=== PATIENT | male | born 1975 | race American Indian/Alaskan Native ===

== ENCOUNTER 2018-02-28 12:30 | Observation (INO) | payer BC ==
[2018-02-28 13:02] VITALS: BMI 39.1
--- NOTE | 2018-02-28 13:31 | C.PDOC ---
History Of Present Illness 42 years old male presents to ED for complaints of abdominal pain associated with cough, generalized weakness, and diarrhea. The patient reports that he is also having intermittent chest pain over the past 3 days. Denies fever, vomit ing, recent travel, back pain, rash, sore throat, ear pain, or Hx of asthma. Time Seen by Provider: 02/28/18 13:18 Chief Complaint (Nursing): Abdominal Pain History Per: Patient History/Exam Limitations: no limitations Onset/Duration Of Symptoms: Hrs Current Symptoms Are (Timing): Still Present Location Of Pain/Discomfort: Diffuse Radiation Of Pain To:: None Associated Symptoms: Diarrhea. denies: Fever, Chills Exacerbating Factors: None Alleviating Factors: None Last Bowel Movement: Today Recent travel outside of the [place]: No Past Medical History Reviewed: Historical Data, Nursing Documentation, Vital Signs Vital Signs: Last Vital Signs Temp 97.8 F 02/28/18 12:42 Pulse 93 H 02/28/18 12:42 Resp 18 02/28/18 12:42 BP 142/97 H 02/28/18 12:42 Pulse Ox 97 02/28/18 12:42 - Medical History PMH: HTN (takes no medication.) Surgical History: No Surg Hx Family History: States: No Known Family Hx - Social History Hx Alcohol Use: Yes Hx Substance Use: No - Immunization History Hx Tetanus Toxoid Vaccination: No Hx Influenza Vaccination: No Hx Pneumococcal Vaccination: No Review Of Systems Constitutional: Positive for: Weakness. Negative for: Fever, Chills Respiratory: Positive for: Cough Gastrointestinal: Positive for: Abdominal Pain, Diarrhea. Negative for: Nausea, Vomiting Skin: Negative for: Rash Neurological: Negative for: Weakness, Numbness Physical Exam - Physical Exam Appears: Non-toxic, No Acute Distress Skin: Normal Color, Warm, Dry, No Rash Head: Atraumatic, Normacephalic Eye(s): bilateral: Normal Inspection, PERRL, EOMI Nose: Normal Oral Mucosa: Moist Neck: Normal ROM, Supple Chest: Symmetrical, No Tenderness Cardiovascular: Rhythm Regular, No Friction Rub, No Murmur Respiratory: Normal Breath Sounds, No Rales, No Rhonchi, No Wheezing Gastrointestinal/Abdominal: Bowel Sounds, Soft, No Tenderness Back: Normal Inspection, No CVA Tenderness Extremity: Normal ROM, No Tenderness, No Swelling Extremity: Bilateral: Atraumatic, Normal Color And Temperature, Normal ROM Neurological/Psych: Oriented x3, Normal Speech, Normal Motor Gait: Steady ED Course And Treatment - Laboratory Results Result Diagrams: 02/28/18 13:55 02/28/18 13:55 O2 Sat by Pulse Oximetry: 97 (RA) Pulse Ox Interpretation: Normal - Other Rad CXR X-Ray: Viewed By Me, Read By Radiologist Interpretation: HISTORY: abd pain. COMPARISON: No prior. TECHNIQUE: Chest, one view. FINDINGS: Examination limited by habitus. LUNGS: No focal consolidation. Please note that chest x-ray has limited sensitivity for the detection of pulmonary masses. PLEURA: No significant pleural effusion identified. No definite pneumothorax . CARDIOVASCULAR: Top normal cardiac size. Prominent mediastinum may be related to ectatic aorta. No significant atherosclerotic calcification present. OSSEOUS STRUCTURES: No acute osseous abnormality identified. VISUALIZED UPPER ABDOMEN: Unremarkable. OTHER FINDINGS: None. IMPRESSION: Prominent mediastinum may be related to ectatic aorta. Alternatives including adenopathy are not excluded. Correlate clinically. No focal consolidation. Medical Decision Making Medical Decision Making: Plan: * IV Fluids * Toradol * Zofran * Blood work * CXR * EKG * Urinalysis EKG: * Normal sinus rhythm at 73 bpm * T-Wave abnormality V1, V2, V3 * Inverted T wave V5 and V6. * No old EKG for comparison The case was discussed with Dr. Gustavo Petty (hospitalist) who agrees to admit the patient under Dr. Douglass's service. The CT Angio shows some infiltrates on the right side. Blood cultures and Zithromax and Rocephin IV ordered. Influenza was negative. Disposition - Disposition Disposition: HOSPITALIZED Disposition Time: 17:30 Condition: STABLE - Clinical Impression Clinical Impression: Chest pain, Abnormal ECG, Viral syndrome - PA / CHRI[employer]IAN SCI[employer]ER / Resident Statement MD/DO has reviewed & agrees with the documentation as recorded. - Scribe Statement The provider has reviewed the documentation as recorded by the Netta Carroll All medical record entries made by the Ronnieibroger were at my direction and personally dictated by me. I have reviewed the chart and agree that the record accurately reflects my personal performance of the history, physical exam, medical decision making, and the department course for this patient. I have also personally directed, reviewed, and agree with the discharge instructions and disposition.
[2018-02-28] MEDS ORDERED: Sodium Chloride 0.9% 1,000 ML IV ONE (13:40)
[2018-02-28] MEDS ORDERED: Sodium Chloride 0.9% 1,000 ML ONE (13:56)
[2018-02-28 14:05] LABS: BASO % 0.9 % (0.0-2.0); EOS % 0.1 % (0.0-4.0); LYMPH # 1.6 K/uL (1.0-4.3); LYMPH % 35.2 % (20.0-40.0); MEAN CELL VOLUME 93.5 fL (80.0-94.0); MEAN CORPUSCULAR HEMOGLOBIN 31.3 pg (27.0-31.0); MEAN CORPUSCULAR HGB CONC 33.4 g/dL (33.0-37.0); MEAN PLATELET VOLUME 9.8 fL (7.2-11.7); MONO # 0.7 K/uL (0.0-0.8); MONO % 14.3 % (0.0-10.0); NEUT # 2.3 K/uL (1.8-7.0); NEUT % 49.5 % (50.0-75.0); NRBC % 0.2 % (0.0-2.0); RBC 4.79 Mil/uL (4.40-5.90); RED CELL DISTRIBUTION WIDTH 14.3 % (11.5-14.5); WHITE BLOOD COUNT 4.6 K/uL (4.8-10.8)
[2018-02-28 14:09] LABS: SQUAMOUS EPITHIAL < 1 /hpf (0-5); URINE BACTERIA RARE (<OCC); URINE BILIRUBIN NEGATIVE (NEGATIVE); URINE BLOOD NEGATIVE (NEGATIVE); URINE CLARITY Hazy (Clear); URINE COLOR Amber (YELLOW); URINE GLUCOSE (UA) NORMAL (Normal); URINE LEUKOCYTE ESTERASE NEG Leu/uL (Negative); URINE PROTEIN 3+ mg/dL (NEGATIVE); URINE UROBILINOGEN NORMAL mg/dL (0.2-1.0)
[2018-02-28 14:20] LABS: BLOOD UREA NITROGEN 16 mg/dL (9-20); GFR NON-AFRICAN AMERICAN > 60
[2018-02-28 14:21] LABS: ALB/GLOB RATIO 1.3 (1.0-2.1); ALBUMIN 4.6 g/dL (3.5-5.0); ALT/SGPT 39 U/L (21-72); AST/SGOT 46 U/L (17-59); LIPASE 124 U/L (23-300)
--- NOTE | 2018-02-28 14:21 | RAD ---
HISTORY: abd pain COMPARISON: No prior. TECHNIQUE: Chest, one view. FINDINGS: Examination limited by habitus. LUNGS: No focal consolidation. Please note that chest x-ray has limited sensitivity for the detection of pulmonary masses. PLEURA: No significant pleural effusion identified. No definite pneumothorax . CARDIOVASCULAR: Top normal cardiac size. Prominent mediastinum may be related to ectatic aorta. No significant atherosclerotic calcification present. OSSEOUS STRUCTURES: No acute osseous abnormality identified. VISUALIZED UPPER ABDOMEN: Unremarkable. OTHER FINDINGS: None. IMPRESSION: Prominent mediastinum may be related to ectatic aorta. Alternatives including adenopathy are not excluded. Correlate clinically. No focal consolidation.
[2018-02-28] MEDS ORDERED: Iodixanol 320 MG/ML 100 ML BOTTLE IV ONE (17:23)
--- NOTE | 2018-02-28 18:08 | CT ---
Date of service: 02/28/2018 PROCEDURE: CT Chest with contrast HISTORY: chest pain, widened mediastinum COMPARISON: None available. TECHNIQUE: Contiguous axial images were obtained through the chest with intravenous contrast enhancement. Sagittal and coronal reconstructions were performed. IV contrast: 100 cc Omnipaque 300 Radiation dose: Total exam DLP = 668.27 mGy-cm. This CT exam was performed using one or more of the following dose reduction techniques: Automated exposure control, adjustment of the mA and/or kV according to patient size, and/or use of iterative reconstruction technique. FINDINGS: LUNGS: Faint infiltrate/atelectasis right lower lobe additional infiltrate posterior segment right upper lobe. MEDIASTINUM: Top-normal ascending aorta measures 3.9 cm. Otherwise, no aneurysm or dissection. Normal size heart. Left ventricular wall hypertrophy. Etiology unknown. Main pulmonary artery unremarkable. No vascular congestion. No lymphadenopathy. No aortic atherosclerotic calcification or mural plaque present. PLEURA: No pleural fluid. No pneumothorax. BONES: No fracture. No destructive lesion. UPPER ABDOMEN: Grossly unremarkable. OTHER FINDINGS: None. IMPRESSION: 1. Left ventricular hypertrophy, mildly aneurysmal ascending aorta. Cardiac echo may further resolved these findings 2. Subsegmental infiltrates right upper lobe, right lower lobe. Findings are best seen on sagittal images series 602/82.
[2018-02-28] MEDS ORDERED: cefTRIAXone IV 1 gm in Dextros 50 ML IV ONE ×2 (18:40→19:30)
[2018-02-28] MEDS ORDERED: Azithromycin 500mg/250ML NS 500 MG/250 ML BAG IV ONE ×2 (18:45→20:00)
--- NOTE | 2018-02-28 20:16 | CP.PCM.HP ---
<Nelson Raymundo - Last Filed: 03/01/18 06:54> History of Present Illness - History of Present Illness History of Present Illness: CC "chest pain, cough" HPI: Patient is a 42 year old male with history of hypertension who presents with right sided chest pain and dry cough. He states he has been feeling sick for for 5 days, initially experiencing abdominal pain with decreased appetite, and 1 episode of watery stool yesterday. He states that he experienced episode of watery stool after he took 2 tablets of Pepto bismol. He states he has had an intermittent dry cough for the past 5 days as well. He states he came in to seek medical attention today because he experienced sudden onset of right sided chest pain described as discomfort today, which resolved after he rubbed the area. He denies improvement in pain with deep breath, position. He admits to feeling warm at home, but denies chills. Denies nausea, vomiting. He denies headache, dizziness, shortness of breath, palpitations, back pain, urinary frequency or pain or urgency, swelling in legs or leg pain. He denies recent travel or sick contacts. PMH: Hypertension PSH: boil removal Family hx: mother has unspecificed heart issues Social hx: Currently works in construction. Stopped smoking 20 years ago, denies alcohol or drug use. Home meds: none Allergies: Lisinipril - lips swell up. Present on Admission - Present on Admission Any Indicators Present on Admission: No Review of Systems - Constitutional Constitutional: Fever. absent: Chills, Weight Gain, Weight Loss - EENT Eyes: absent: Change in Vision, Spots in Vision Ears: absent: Ear Discharge, Dizziness Nose/Mouth/Throat: absent: Nasal Congestion, Sore Throat - Cardiovascular Cardiovascular: Chest Pain. absent: Dyspnea, Palpitations, Syncope - Respiratory Respiratory: Cough, Dyspnea - Gastrointestinal Gastrointestinal: Abdominal Pain. absent: Nausea, Vomiting - Genitourinary Genitourinary: absent: Change in Urinary Stream, Difficulty Urinating - Musculoskeletal Musculoskeletal: absent: Back Pain, Stiffness - Neurological Neurological: absent: Confusion, Dizziness, Loss of Vision - Psychiatric Psychiatric: absent: Anxiety, Depression Past Patient History - Past Social History Smoking Status: Heavy Smoker > 10 Cigarettes Daily - CARDIAC Hx Hypertension: Yes (takes no medication.) - PSYCHIATRIC Hx Substance Use: No - SURGICAL HISTORY Hx Surgeries: No - ANESTHESIA Hx Anesthesia: No Meds Allergies/Adverse Reactions: Allergies Allergy/AdvReac Type Severity Reaction Status Date / Time lisinopril AdvReac SWELLING Verified 02/28/18 12:41 Physical Exam - Constitutional Appears: Well, Non-toxic, No Acute Distress - Head Exam Head Exam: ATRAUMATIC, NORMOCEPHALIC - Eye Exam Eye Exam: EOMI, PERRL. absent: Conjunctival injection, Periorbital swelling - ENT Exam ENT Exam: Mucous Membranes Moist, Normal Oropharynx - Neck Exam Neck exam: Positive for: Full Rom. Negative for: Lymphadenopathy, Tenderness, Thyromegaly - Respiratory Exam Respiratory Exam: Clear to Auscultation Bilateral. absent: Accessory Muscle Use Additional comments: Slight Tachypnea at rest Intermittent dry cough - Cardiovascular Exam Cardiovascular Exam: REGULAR RHYTHM, +S1, +S2. absent: Gallop, Rubs, Systolic Murmur - GI/Abdominal Exam GI & Abdominal Exam: Normal Bowel Sounds, Soft. absent: Distended, Firm, Guarding, Hernia, Rigid, Tenderness - Rectal Exam Rectal Exam: Deferred - Extremities Exam Extremities exam: Positive for: normal capillary refill, pedal pulses present. Negative for: calf tenderness, pedal edema - Back Exam Back exam: absent: CVA tenderness (L), CVA tenderness (R) - Neurological Exam Neurological exam: Alert, CN II-XII Intact, Oriented x3 - Psychiatric Exam Psychiatric exam: Normal Affect, Normal Mood - Skin Skin Exam: Dry, Intact, Warm Results - Vital Signs Recent Vital Signs: Last Vital Signs Temp 99.4 F 02/28/18 15:56 Pulse 91 H 02/28/18 18:34 Resp 13 02/28/18 18:34 BP 151/87 H 02/28/18 18:34 Pulse Ox 97 02/28/18 18:59 - Labs Result Diagrams: 03/01/18 04:01 02/28/18 13:55 Labs: Laboratory Results - last 24 hr 02/28/18 02/28/18 02/28/18 13:55 13:55 13:55 WBC 4.6 L RBC 4.79 Hgb 15.0 Hct 44.8 MCV 93.5 MCH 31.3 H MCHC 33.4 RDW 14.3 Plt Count 190 MPV 9.8 Neut % (Auto) 49.5 L Lymph % (Auto) 35.2 Ness % (Auto) 14.3 H Eos % (Auto) 0.1 Baso % (Auto) 0.9 Neut # (Auto) 2.3 Lymph # (Auto) 1.6 Ness # (Auto) 0.7 Eos # (Auto) 0.0 Baso # (Auto) 0.0 Sodium 136 Potassium 3.5 L Chloride 98 Carbon Dioxide 28 Anion Gap 14 BUN 16 Creatinine 1.0 Est GFR ( Amer) > 60 Est GFR (Non-Af Amer) > 60 Random Glucose 100 Calcium 9.0 Total Bilirubin 0.6 AST 46 ALT 39 Alkaline Phosphatase 78 Troponin I 0.0450 Total Protein 8.2 Albumin 4.6 Globulin 3.6 Albumin/Globulin Ratio 1.3 Lipase 124 Urine Color Danielle Urine Clarity Hazy Urine pH 5.0 Ur Specific Tenino 1.034 H Urine Protein 3+ H Urine Glucose (UA) Normal Urine Ketones Negative Urine Blood Negative Urine Nitrate Negative Urine Bilirubin Negative Urine Urobilinogen Normal Ur Leukocyte Esterase Neg Urine WBC (Auto) 2 Urine RBC (Auto) 2 Ur Squamous Epith Cells < 1 Urine Bacteria Rare Influenza Typ A,B (EIA) 02/28/18 17:17 WBC RBC Hgb Hct MCV MCH MCHC RDW Plt Count MPV Neut % (Auto) Lymph % (Auto) Ness % (Auto) Eos % (Auto) Baso % (Auto) Neut # (Auto) Lymph # (Auto) Ness # (Auto) Eos # (Auto) Baso # (Auto) Sodium Potassium Chloride Carbon Dioxide Anion Gap BUN Creatinine Est GFR ( Amer) Est GFR (Non-Af Amer) Random Glucose Calcium Total Bilirubin AST ALT Alkaline Phosphatase Troponin I Total Protein Albumin Globulin Albumin/Globulin Ratio Lipase Urine Color Urine Clarity Urine pH Ur Specific Tenino Urine Protein Urine Glucose (UA) Urine Ketones Urine Blood Urine Nitrate Urine Bilirubin Urine Urobilinogen Ur Leukocyte Esterase Urine WBC (Auto) Urine RBC (Auto) Ur Squamous Epith Cells Urine Bacteria Influenza Typ A,B (EIA) Negative for flu a/b Assessment & Plan - Assessment and Plan (Free Text) Assessment: 42 year old male with history of hypertension who presents for right sided chest pain and dry cough. Plan: Cough, likely secondary to pneumonia Febrile 100.8 White count 4.6 CXR: prominent mediastinum may be related to ectatic aorta. Alternatives including adenopathy are not excluded. Correlate clinically CT angio: LVH, Mildly aneurysmal ascending aorta. Cardio echo may further resolve these findings. Subsegmental infiltrates RUL and RLL. In ED, patient received Rocephin 1g IV, Azithromycin 500mg IV. Rocephin 1g BID Doxycycline 100mg BID Tylenol 650mg Q6 PRN f/u blood cultures f/u legionella, mycoplasma, strep Chest pain, r/o ACS EKG SR 72 LVH CXR: prominent mediastinum may be related to ectatic aorta. Alternatives i ncluding adenopathy are not excluded. Correlate clinically CT angio: LVH, Mildly aneurysmal ascending aorta. Cardio echo may further resolve these findings. Subsegmental infiltrates RUL and RLL. Trops f/u EKG f/u f/u ECHO ASA 81mg PO Crestor 10mg PO HS Elevated Blood pressure Reeval in AM Not taking medications at home PPX Heparin 5000 units SC Q12, SCDs Protonix 40mg IV daily Heart healthy diet Case discussed with Dr. Evonne Raymundo, PGY1 <Albert Douglass P - Last Filed: 03/01/18 08:18> Results - Vital Signs Recent Vital Signs: Last Vital Signs Temp 99.3 F 03/01/18 04:15 Pulse 68 03/01/18 04:15 Resp 20 03/01/18 04:15 BP 140/92 H 03/01/18 04:15 Pulse Ox 96 03/01/18 04:15 - Labs Result Diagrams: 03/01/18 04:01 03/01/18 04:01 Labs: Laboratory Results - last 24 hr 02/28/18 02/28/18 02/28/18 13:55 13:55 13:55 WBC 4.6 L RBC 4.79 Hgb 15.0 Hct 44.8 MCV 93.5 MCH 31.3 H MCHC 33.4 RDW 14.3 Plt Count 190 MPV 9.8 Neut % (Auto) 49.5 L Lymph % (Auto) 35.2 Ness % (Auto) 14.3 H Eos % (Auto) 0.1 Baso % (Auto) 0.9 Neut # (Auto) 2.3 Lymph # (Auto) 1.6 Ness # (Auto) 0.7 Eos # (Auto) 0.0 Baso # (Auto) 0.0 Sodium 136 Potassium 3.5 L Chloride 98 Carbon Dioxide 28 Anion Gap 14 BUN 16 Creatinine 1.0 Est GFR ( Amer) > 60 Est GFR (Non-Af Amer) > 60 POC Glucose (mg/dL) Random Glucose 100 Calcium 9.0 Phosphorus Magnesium Total Bilirubin 0.6 AST 46 ALT 39 Alkaline Phosphatase 78 Troponin I 0.0450 Total Protein 8.2 Albumin 4.6 Globulin 3.6 Albumin/Globulin Ratio 1.3 Lipase 124 Urine Color Danielle Urine Clarity Hazy Urine pH 5.0 Ur Specific Tenino 1.034 H Urine Protein 3+ H Urine Glucose (UA) Normal Urine Ketones Negative Urine Blood Negative Urine Nitrate Negative Urine Bilirubin Negative Urine Urobilinogen Normal Ur Leukocyte Esterase Neg Urine WBC (Auto) 2 Urine RBC (Auto) 2 Ur Squamous Epith Cells < 1 Urine Bacteria Rare Influenza Typ A,B (EIA) 02/28/18 02/28/18 03/01/18 17:17 20:51 04:01 WBC 2.9 L RBC 4.17 L Hgb 13.2 Hct 38.6 MCV 92.5 MCH 31.6 H MCHC 34.1 RDW 14.3 Plt Count 163 MPV 8.9 Neut % (Auto) 35.1 L Lymph % (Auto) 47.8 H Ness % (Auto) 15.7 H Eos % (Auto) 0.6 Baso % (Auto) 0.8 Neut # (Auto) 1.0 L Lymph # (Auto) 1.4 Ness # (Auto) 0.5 Eos # (Auto) 0.0 Baso # (Auto) 0.0 Sodium Potassium Chloride Carbon Dioxide Anion Gap BUN Creatinine Est GFR ( Amer) Est GFR (Non-Af Amer) POC Glucose (mg/dL) 134 H Random Glucose Calcium Phosphorus Magnesium Total Bilirubin AST ALT Alkaline Phosphatase Troponin I Total Protein Albumin Globulin Albumin/Globulin Ratio Lipase Urine Color Urine Clarity Urine pH Ur Specific Tenino Urine Protein Urine Glucose (UA) Urine Ketones Urine Blood Urine Nitrate Urine Bilirubin Urine Urobilinogen Ur Leukocyte Esterase Urine WBC (Auto) Urine RBC (Auto) Ur Squamous Epith Cells Urine Bacteria Influenza Typ A,B (EIA) Negative for flu a/b 03/01/18 03/01/18 04:01 06:18 WBC RBC Hgb Hct MCV MCH MCHC RDW Plt Count MPV Neut % (Auto) Lymph % (Auto) Ness % (Auto) Eos % (Auto) Baso % (Auto) Neut # (Auto) Lymph # (Auto) Ness # (Auto) Eos # (Auto) Baso # (Auto) Sodium 137 Potassium 3.7 Chloride 105 Carbon Dioxide 25 Anion Gap 11 BUN 14 Creatinine 0.8 Est GFR ( Amer) > 60 Est GFR (Non-Af Amer) > 60 POC Glucose (mg/dL) 101 Random Glucose 104 Calcium 8.2 L Phosphorus 3.4 Magnesium 1.8 Total Bilirubin 0.5 AST 51 ALT 46 Alkaline Phosphatase 69 Troponin I 0.0320 Total Protein 6.8 Albumin 3.7 Globulin 3.1 Albumin/Globulin Ratio 1.2 Lipase Urine Color Urine Clarity Urine pH Ur Specific Tenino Urine Protein Urine Glucose (UA) Urine Ketones Urine Blood Urine Nitrate Urine Bilirubin Urine Urobilinogen Ur Leukocyte Esterase Urine WBC (Auto) Urine RBC (Auto) Ur Squamous Epith Cells Urine Bacteria Influenza Typ A,B (EIA) Attending/Attestation - Attestation I have personally seen and examined this patient.: Yes I have fully participated in the care of the patient.: Yes I have reviewed all pertinent clinical information: Yes Notes (Text): 03/01/18 08:16 CP, cough, temp+ CTA showing multilobar small patchy pna Abnorma EKG HTN on initial assessment Protienuria Plan Rocephin, doxycycline Echo GI/DVT prophylaxis Repeat UA Monitor BP See orders for detail.
[2018-02-28 20:37] VITALS: RESP 20
[2018-02-28] MEDS ORDERED: Pneumococcal 23-Valent Vaccine IM ONE (20:43)
[2018-03-01 04:05] LABS: BASO % 0.8 % (0.0-2.0); EOS % 0.6 % (0.0-4.0); HEMOGLOBIN 13.2 g/dL (12.0-18.0); LYMPH # 1.4 K/uL (1.0-4.3); LYMPH % 47.8 % (20.0-40.0); MEAN CELL VOLUME 92.5 fL (80.0-94.0); MEAN CORPUSCULAR HEMOGLOBIN 31.6 pg (27.0-31.0); MEAN CORPUSCULAR HGB CONC 34.1 g/dL (33.0-37.0); MEAN PLATELET VOLUME 8.9 fL (7.2-11.7); MONO # 0.5 K/uL (0.0-0.8); MONO % 15.7 % (0.0-10.0); NEUT % 35.1 % (50.0-75.0); NRBC % 0.1 % (0.0-2.0); RBC 4.17 Mil/uL (4.40-5.90); RED CELL DISTRIBUTION WIDTH 14.3 % (11.5-14.5); WHITE BLOOD COUNT 2.9 K/uL (4.8-10.8)
[2018-03-01 06:04] LABS: ALB/GLOB RATIO 1.2 (1.0-2.1); ALBUMIN 3.7 g/dL (3.5-5.0); ALT/SGPT 46 U/L (21-72); AST/SGOT 51 U/L (17-59); BLOOD UREA NITROGEN 14 mg/dL (9-20); CALCIUM 8.2 mg/dl (8.6-10.4); GFR NON-AFRICAN AMERICAN > 60
[2018-03-01 08:38] VITALS: BP 122/77; TEMP 98.8; O2SAT 99
--- NOTE | 2018-03-01 14:39 | CP.PCM.DIS ---
<LoriYu June - Last Filed: 03/01/18 15:25> Provider - Provider Date of Admission: 02/28/18 17:55 Attending physician: Albert Douglass MD Time Spent in preparation of Discharge (in minutes): 45 Diagnosis - Discharge Diagnosis (1) Chest pain Status: Acute (2) PNA (pneumonia) Status: Acute Hospital Course - Lab Results Lab Results: Most Recent Lab Values WBC 2.9 K/uL (4.8-10.8) L 03/01/18 04:01 RBC 4.17 Mil/uL (4.40-5.90) L 03/01/18 04:01 Hgb 13.2 g/dL (12.0-18.0) 03/01/18 04:01 Hct 38.6 % (35.0-51.0) 03/01/18 04:01 MCV 92.5 fL (80.0-94.0) 03/01/18 04:01 MCH 31.6 pg (27.0-31.0) H 03/01/18 04:01 MCHC 34.1 g/dL (33.0-37.0) 03/01/18 04:01 RDW 14.3 % (11.5-14.5) 03/01/18 04:01 Plt Count 163 K/uL (130-400) 03/01/18 04:01 MPV 8.9 fL (7.2-11.7) 03/01/18 04:01 Neut % (Auto) 35.1 % (50.0-75.0) L 03/01/18 04:01 Lymph % (Auto) 47.8 % (20.0-40.0) H 03/01/18 04:01 Deuel % (Auto) 15.7 % (0.0-10.0) H 03/01/18 04:01 Eos % (Auto) 0.6 % (0.0-4.0) 03/01/18 04:01 Baso % (Auto) 0.8 % (0.0-2.0) 03/01/18 04:01 Neut # (Auto) 1.0 K/uL (1.8-7.0) L 03/01/18 04:01 Lymph # (Auto) 1.4 K/uL (1.0-4.3) 03/01/18 04:01 Deuel # (Auto) 0.5 K/uL (0.0-0.8) 03/01/18 04:01 Eos # (Auto) 0.0 K/uL (0.0-0.7) 03/01/18 04:01 Baso # (Auto) 0.0 K/uL (0.0-0.2) 03/01/18 04:01 Sodium 137 mmol/L (132-148) 03/01/18 04:01 Potassium 3.7 mmol/L (3.6-5.2) 03/01/18 04:01 Chloride 105 mmol/L (98-107) 03/01/18 04:01 Carbon Dioxide 25 mmol/L (22-30) 03/01/18 04:01 Anion Gap 11 (10-20) 03/01/18 04:01 BUN 14 mg/dL (9-20) 03/01/18 04:01 Creatinine 0.8 mg/dL (0.8-1.5) 03/01/18 04:01 Est GFR ( Amer) > 60 03/01/18 04:01 Est GFR (Non-Af Amer) > 60 03/01/18 04:01 POC Glucose (mg/dL) 101 mg/dL (65-110) 03/01/18 06:18 Random Glucose 104 mg/dL (75-110) 03/01/18 04:01 Calcium 8.2 mg/dl (8.6-10.4) L 03/01/18 04:01 Phosphorus 3.4 mg/dL (2.5-4.5) 03/01/18 04:01 Magnesium 1.8 mg/dL (1.6-2.3) 03/01/18 04:01 Total Bilirubin 0.5 mg/dL (0.2-1.3) 03/01/18 04:01 AST 51 U/L (17-59) 03/01/18 04:01 ALT 46 U/L (21-72) 03/01/18 04:01 Alkaline Phosphatase 69 U/L (38-126) 03/01/18 04:01 Troponin I 0.0250 ng/mL (0.00-0.120) 03/01/18 11:26 Total Protein 6.8 g/dL (6.3-8.3) 03/01/18 04:01 Albumin 3.7 g/dL (3.5-5.0) 03/01/18 04:01 Globulin 3.1 gm/dL (2.2-3.9) 03/01/18 04:01 Albumin/Globulin Ratio 1.2 (1.0-2.1) 03/01/18 04:01 Lipase 124 U/L (23-300) 02/28/18 13:55 Urine Color Danielle (YELLOW) 02/28/18 13:55 Urine Clarity Hazy (Clear) 02/28/18 13:55 Urine pH 5.0 (5.0-8.0) 02/28/18 13:55 Ur Specific [place] 1.034 (1.003-1.030) H 02/28/18 13:55 Urine Protein 3+ mg/dL (NEGATIVE) H 02/28/18 13:55 Urine Glucose (UA) Normal mg/dL (Normal) 02/28/18 13:55 Urine Ketones Negative mg/dL (NEGATIVE) 02/28/18 13:55 Urine Blood Negative (NEGATIVE) 02/28/18 13:55 Urine Nitrate Negative (NEGATIVE) 02/28/18 13:55 Urine Bilirubin Negative (NEGATIVE) 02/28/18 13:55 Urine Urobilinogen Normal mg/dL (0.2-1.0) 02/28/18 13:55 Ur Leukocyte Esterase Neg Bebeto/uL (Negative) 02/28/18 13:55 Urine WBC (Auto) 2 /hpf (0-5) 02/28/18 13:55 Urine RBC (Auto) 2 /hpf (0-3) 02/28/18 13:55 Ur Squamous Epith Cells < 1 /hpf (0-5) 02/28/18 13:55 Urine Bacteria Rare (<OCC) 02/28/18 13:55 Influenza Typ A,B (EIA) Negative for flu a/b (NEGATIVE) 02/28/18 17:17 - Hospital Course Hospital Course: Patient is a 42 year old male with history of hypertension who presents with right sided chest pain and dry cough. He states he has been feeling sick for for 5 days, initially experiencing abdominal pain with decreased appetite, and 1 episode of watery stool yesterday. He states that he experienced episode of watery stool after he took 2 tablets of Pepto bismol. He states he has had an intermittent dry cough for the past 5 days as well. He states he came in to seek medical attention today because he experienced sudden onset of right sided chest pain described as discomfort today, which resolved after he rubbed the area. He denies improvement in pain with deep breath, position. He admits to feeling warm at home, but denies chills. Denies nausea, vomiting. He denies headache, dizziness, shortness of breath, palpitations, back pain, urinary frequency or pain or urgency, swelling in legs or leg pain. He denies recent travel or sick contacts. CXR showed no focal cosolidation, but a prominent mediastinum. Chest CTA showed LV hypertrophy, mildly ascending aorta aneurysm at 3.9cm, and subsegmental infiltrates RUL, RLL. ECHO showed the aortic root at 3.4cm, LVEF 37%. The patient has clinically improved and is breathing easily without chest pain. Serial ROMIs and EKGs were negative x3. Primary Diagnosis: Chest Pain r/o ACS, Pneumonia Patient is clear for discharge per Dr. Ruiz. He is to take the antibiotic as instructed every day: Avelox (moxifloxicin) 400mg po daily. Take one tab by mouth once a day for 8 days You are also being started on two medications for your heart. It will be very important for you to follow up with your doctor to continue these medications: Lopressor 12.5mg po daily. Take one tab by mouth once a day Simvastatin 10mg po HS. Take one tab by mouth at bedtime You decided against being started on an ACEi/ARB due to your Lisinopril allergy. Patient is to follow up with PMD within one week for follow up. If patient cannot establish care, he is welcome to [facility]. If symptoms should return or worsen (fever, cough, shortness of breath) please return to the ED. Please take it easy for the next few days while your body recovers. You can return to work next week. This was discussed with the patient who understood and agrees. This is a summary of the hospital course. Please refer to the EMR for more detail. - Date & Time of H&P Date of H&P: 03/01/18 Time of H&P: 14:15 Discharge Exam - Head Exam Head Exam: ATRAUMATIC, NORMOCEPHALIC - Eye Exam Eye Exam: EOMI, Normal appearance, PERRL - ENT Exam ENT Exam: Mucous Membranes Moist Additional comments: Nasal Congestion - Respiratory Exam Respiratory Exam: Wheezes, NORMAL BREATHING PATTERN. absent: Rales, Rhonchi Additional comments: R expiratory wheezes - Cardiovascular Exam Cardiovascular Exam: REGULAR RHYTHM, +S1, +S2 - GI/Abdominal Exam GI & Abdominal Exam: Normal Bowel Sounds, Soft. absent: Distended, Firm, Guarding, Tenderness - Extremities Exam Extremities exam: normal capillary refill, pedal pulses present - Back Exam Back exam: absent: CVA tenderness (L), CVA tenderness (R) - Neurological Exam Neurological exam: Alert, CN II-XII Intact, Normal Gait, Oriented x3, Reflexes Normal - Psychiatric Exam Psychiatric exam: Normal Affect, Normal Mood - Skin Skin Exam: Normal Color, Warm Additional comments: sweaty Discharge Plan - Discharge Medications Prescriptions: RX: Metoprolol Tartrate [Lopressor] 12.5 mg PO DAILY #30 tab Moxifloxacin [Avelox] 400 mg PO DAILY #8 tab RX: Simvastatin 5 mg PO DAILY #30 tablet - Follow Up Plan Condition: STABLE Disposition: HOME/ ROUTINE Instructions: Heart Healthy Diet, Chest Pain, Moxifloxacin (Systemic), Pneumonia, Adult (DC), Low Salt Diet, Metoprolol, Simvastatin Additional Instructions: Activity as tolerated, continue all meds as instructed. Patient is clear for discharge per Dr. Ruiz. He is to take the antibiotic as instructed every day: Avelox (moxifloxicin) 400mg po daily. Take one tab by mouth once a day for 8 days You are also being started on two medications for your heart. It will be very important for you to follow up with your doctor to continue these medications: Lopressor 12.5mg po daily. Take one tab by mouth once a day Simvastatin 10mg po HS. Take one tab by mouth at bedtime Patient is to follow up with PMD within one week for follow up. If patient cannot establish care, he is welcome to [facility]. If symptoms should return or worsen (fever, cough, shortness of breath) please return to the ED. Please take it easy for the next few days while your body recovers. You can return to work next week. This was discussed with the patient who understood and agrees. Referrals: Clinic,Med Surg [Non-Staff] - [facility] [Outside] Clinical Quality Measures - CQM - Heart Failure Ejection Fraction: Less Than 40 % CARLOS Inhibitor Prescribed: No Contraindication/Reason for not providing: Patient refused Beta-Louis Prescribed: Metoprolol Succinate Angiotensin II Receptor Louis Prescribed: No Contraindication/Reason for not providing: patient refused AnticoagulationTherapy for Atrial Fibrillation/Atrialflutter: No Contraindication/Reason for not providing: no AFib/Aflutter Aldosterone Antagonist Prescribed: No Contraindication/Reason for not providing: not indicated Hydralazine Nitrate Prescribed: No Contraindication/Reason for not providing: not indicated Implantable Cardioverter Defibrillator Therapy: No Contraindication/Reason for not providing: medical management optimization trial Cardiac Resynchronization Therapy Prescribed: No Contraindication/Reason for not providing: not indicated <Acosta Ruiz - Last Filed: 03/02/18 07:06> Provider - Provider Date of Admission: 02/28/18 17:55 Attending physician: Albert Douglass MD Hospital Course - Lab Results Lab Results: Micro Results 02/28/18 19:30 Blood Blood Culture - Preliminary NO GROWTH AFTER 24 HOURS 02/28/18 19:00 Blood Blood Culture - Preliminary NO GROWTH AFTER 24 HOURS Most Recent Lab Values WBC 2.9 K/uL (4.8-10.8) L 03/01/18 04:01 RBC 4.17 Mil/uL (4.40-5.90) L 03/01/18 04:01 Hgb 13.2 g/dL (12.0-18.0) 03/01/18 04:01 Hct 38.6 % (35.0-51.0) 03/01/18 04:01 MCV 92.5 fL (80.0-94.0) 03/01/18 04:01 MCH 31.6 pg (27.0-31.0) H 03/01/18 04:01 MCHC 34.1 g/dL (33.0-37.0) 03/01/18 04:01 RDW 14.3 % (11.5-14.5) 03/01/18 04:01 Plt Count 163 K/uL (130-400) 03/01/18 04:01 MPV 8.9 fL (7.2-11.7) 03/01/18 04:01 Neut % (Auto) 35.1 % (50.0-75.0) L 03/01/18 04:01 Lymph % (Auto) 47.8 % (20.0-40.0) H 03/01/18 04:01 Deuel % (Auto) 15.7 % (0.0-10.0) H 03/01/18 04:01 Eos % (Auto) 0.6 % (0.0-4.0) 03/01/18 04:01 Baso % (Auto) 0.8 % (0.0-2.0) 03/01/18 04:01 Neut # (Auto) 1.0 K/uL (1.8-7.0) L 03/01/18 04:01 Lymph # (Auto) 1.4 K/uL (1.0-4.3) 03/01/18 04:01 Deuel # (Auto) 0.5 K/uL (0.0-0.8) 03/01/18 04:01 Eos # (Auto) 0.0 K/uL (0.0-0.7) 03/01/18 04:01 Baso # (Auto) 0.0 K/uL (0.0-0.2) 03/01/18 04:01 Sodium 137 mmol/L (132-148) 03/01/18 04:01 Potassium 3.7 mmol/L (3.6-5.2) 03/01/18 04:01 Chloride 105 mmol/L (98-107) 03/01/18 04:01 Carbon Dioxide 25 mmol/L (22-30) 03/01/18 04:01 Anion Gap 11 (10-20) 03/01/18 04:01 BUN 14 mg/dL (9-20) 03/01/18 04:01 Creatinine 0.8 mg/dL (0.8-1.5) 03/01/18 04:01 Est GFR ( Amer) > 60 03/01/18 04:01 Est GFR (Non-Af Amer) > 60 03/01/18 04:01 POC Glucose (mg/dL) 101 mg/dL (65-110) 03/01/18 06:18 Random Glucose 104 mg/dL (75-110) 03/01/18 04:01 Calcium 8.2 mg/dl (8.6-10.4) L 03/01/18 04:01 Phosphorus 3.4 mg/dL (2.5-4.5) 03/01/18 04:01 Magnesium 1.8 mg/dL (1.6-2.3) 03/01/18 04:01 Total Bilirubin 0.5 mg/dL (0.2-1.3) 03/01/18 04:01 AST 51 U/L (17-59) 03/01/18 04:01 ALT 46 U/L (21-72) 03/01/18 04:01 Alkaline Phosphatase 69 U/L (38-126) 03/01/18 04:01 Troponin I 0.0250 ng/mL (0.00-0.120) 03/01/18 11:26 Total Protein 6.8 g/dL (6.3-8.3) 03/01/18 04:01 Albumin 3.7 g/dL (3.5-5.0) 03/01/18 04:01 Globulin 3.1 gm/dL (2.2-3.9) 03/01/18 04:01 Albumin/Globulin Ratio 1.2 (1.0-2.1) 03/01/18 04:01 Lipase 124 U/L (23-300) 02/28/18 13:55 Urine Color Danielle (YELLOW) 02/28/18 13:55 Urine Clarity Hazy (Clear) 02/28/18 13:55 Urine pH 5.0 (5.0-8.0) 02/28/18 13:55 Ur Specific [place] 1.034 (1.003-1.030) H 02/28/18 13:55 Urine Protein 3+ mg/dL (NEGATIVE) H 02/28/18 13:55 Urine Glucose (UA) Normal mg/dL (Normal) 02/28/18 13:55 Urine Ketones Negative mg/dL (NEGATIVE) 02/28/18 13:55 Urine Blood Negative (NEGATIVE) 02/28/18 13:55 Urine Nitrate Negative (NEGATIVE) 02/28/18 13:55 Urine Bilirubin Negative (NEGATIVE) 02/28/18 13:55 Urine Urobilinogen Normal mg/dL (0.2-1.0) 02/28/18 13:55 Ur Leukocyte Esterase Neg Bebeto/uL (Negative) 02/28/18 13:55 Urine WBC (Auto) 2 /hpf (0-5) 02/28/18 13:55 Urine RBC (Auto) 2 /hpf (0-3) 02/28/18 13:55 Ur Squamous Epith Cells < 1 /hpf (0-5) 02/28/18 13:55 Urine Bacteria Rare (<OCC) 02/28/18 13:55 Influenza Typ A,B (EIA) Negative for flu a/b (NEGATIVE) 02/28/18 17:17 Attending/Attestation - Attestation I have personally seen and examined this patient.: Yes I have fully participated in the care of the patient.: Yes I have reviewed all pertinent clinical information, including history, physical exam and plan: Yes Notes (Text): 03/02/18 07:03 Medical attending : Patient was seen and examined by me as well. Agree with the above note by the resident We saw the patient together and he reported feeling much improved. His lab work was stable and also he was afebrile. We discussed the pneumonia and he reported he was breathing well and not coughing. He was able to lay flat without problems and we also asked how he did walking and he reported he was doing fine and not short of breath walking. The patient will need to be on BB and ARB since he does have HTN and this is reflected in the echo results. I [facility] and also take the medications The patient will be sent home with PO abx as well thank you Acosta Ruiz
[2018-03-01 16:09] VITALS: PULSE 66
--- NOTE | 2018-03-01 18:37 | CARD ---
APPROVED REPORT Date of service: 02/28/2018 EKG Measurement Heart [id number] <Conclusion> Normal sinus rhythm Possible Left atrial enlargement Incomplete right bundle branch block Left ventricular hypertrophy T wave abnormality, consider lateral ischemia Abnormal ECG
--- NOTE | 2018-03-01 19:09 | CARD ---
APPROVED REPORT Date of service: 02/28/2018 EKG Measurement Heart [id number] <Conclusion> Normal sinus rhythm Minimal voltage criteria for LVH, may be normal variant Nonspecific T wave abnormality Abnormal ECG
--- NOTE | 2018-03-02 07:38 | CARD ---
APPROVED REPORT Date of service: 03/01/2018 EXAM: Two-dimensional and M-mode echocardiogram with Doppler and color Doppler. Other Information Quality : GoodRhythm : INDICATION Chest Pain RISK FACTORS Hypertension 2D DIMENSIONS IVSd1.1 (0.7-1.1cm)LVDd6.3 (3.9-5.9cm) PWd1.1 (0.7-1.1cm)LA Cjfmum07 (18-58mL) LVDs5.2 (2.5-4.0cm)FS (%) 18.7 % LVEF (%)37.9 (>50%)LVEF (Michaels's)34.32 % M-Mode DIMENSIONS Left Atrium (MM)3.67 (2.5-4.0cm)IVSd1.04 (0.7-1.1cm) Aortic Root3.41 (2.2-3.7cm)LVDd7.17 (4.0-5.6cm) Aortic Cusp Exc.2.41 (1.5-2.0cm)PWd1.02 (0.7-1.1cm) FS (%) 30 %LVDs4.99 (2.0-3.8cm) LVEF (%)56 (>50%) Mitral Valve MV E Ncyxkwii28.8cm/sMV A Sceezgil43.6cm/sE/A ratio0.8 TDI Lateral E' Peak V4.29cm/sMedial E' Peak V4.61cm/sE/Lateral E'19.3 E/Medial E'18.0 Tricuspid Valve TR Peak [id number]/sTR Peak Gr.[id number] LEFT VENTRICLE The left ventricle is normal size. There is normal left ventricular wall thickness. Left ventricle systolic function is normal. The Ejection Fraction is 50-55%. There is normal LV segmental wall motion. Tissue Doppler imaging reveals abnormal left ventricular diastolic dysfunction. RIGHT VENTRICLE The right ventricle is normal size. There is normal right ventricular wall thickness. The right ventricular systolic function is normal. ATRIA The left atrium size is normal. The right atrium size is normal. The interatrial septum is intact with no evidence for an atrial septal defect. AORTIC VALVE The aortic valve is normal in structure. No aortic regurgitation is present. There is no aortic valvular stenosis. MITRAL VALVE The mitral valve is normal in structure. There is no evidence of mitral valve prolapse. There is no mitral valve stenosis. There is no mitral valve regurgitation noted. TRICUSPID VALVE The tricuspid valve is normal in structure. There is mild tricuspid regurgitation. Right ventricular systolic pressure is estimated at less than 30 mmHg. There is no pulmonary hypertension. PULMONIC VALVE The pulmonic valve is not well visualized. There is no pulmonic valvular regurgitation. GREAT VESSELS The aortic root is normal in size. PERICARDIAL EFFUSION There is no pericardial effusion. <Conclusion> The LV systolic function is normal. The Ejection Fraction is 50-55%. Diastolic dysfunction. No aortic regurgitation is present. There is no mitral valve regurgitation noted. There is mild tricuspid regurgitation. There is no pulmonary hypertension. There is no pulmonic valvular regurgitation.
== END 2018-03-01 16:31 | disposition home or self-care (01) ==
LOC: C.ER 12:30 → C.9E 17:55 → C.6T 18:17 → C.9E 18:22 → C.6T 18:23
PROVIDERS: ADMIT Internal Medicine; ATTEND Internal Medicine
DX: J18.9 Pneumonia, unspecified organism (principal); R07.9 Chest pain, unspecified; I11.9 Hypertensive heart disease without heart failure; I71.2 Thoracic aortic aneurysm, without rupture; B34.9 Viral infection, unspecified; I51.7 Cardiomegaly; Z87.891 Personal history of nicotine dependence; Z88.8 Allergy status to other drugs, medicaments and biological substances
CPT/HCPCS: 36415; 71045; 71275; 80053; 81001; 82948; 83690; 83735; 84100; 84484; 85025; 87040; 87804; 93005; 93306; 96361; 96365; 96366; 96367; 96372; 96375; 99285; C9113; G0378; J0456; J0696; J1644; J2405; J7030; Q9967